=== PATIENT | male | born 1970 | race Caucasian/White ===

== ENCOUNTER 2022-01-22 06:43 | Outpatient (CLI) | payer OTHER, SELFPAY ==
--- NOTE | 2022-01-26 22:10 | WPDHOMESLEEP ---
Sleep Study - Home Unattended Date of Study: 01/22/22 Ordering Provider: Joe Peralta DO Interpreting Provider: Aparna Jackson MD Home Sleep Study Type: Apnea Link Air Height: 1.85 m Weight: 112.037 kg Body Mass Index: 32.5 Neck Circumference (inches): 17 [place]: 10 Reason for Sleep Study Excessive daytime drowsiness, non restorative sleep Sleep History Tang Santos is a 51 year old man with several years history of excessive daytime sleepiness and feeling unrested when he wakes in the morning. Has difficulty staying asleep and often has early childhood assistant awakenings around 3:00 a.m.. He does not have difficulty falling asleep. He snores loudly at night per his . Sometimes he wakes others up due to his snoring. He often naps during his the day on his days off. There is a family history with loud snoring in his father and brothers. He has tried melatonin but it made him too groggy to function the next morning. He occasionally awakens from sleep feeling short of breath. He occasionally awakens at night with heartburn, belching or coughing. He frequently snores and it is quite loud. He rarely has trouble sleeping with a cold. He rarely wakes up gasping for breath at night. He rarely has breathing problems at night observed by others. He rarely sweats excessively at night. He occasionally notices his heart pounding or beating irregularly at night. He frequently falls asleep during the day but never involuntarily or while driving. He does not have loss of muscle tone with strong emotion. He rarely has daytime difficulties due to excessive sleepiness. 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 He rarely feels paralyzed on waking or falling asleep. He rarely has vivid dreamlike scenes upon awakening or falling asleep. He does not feel afraid to go to sleep. He occasionally has nightmares. He occasionally remembers his dreams. He occasionally has racing thoughts. He rarely feels sad or depressed. He frequently has anxiety, frequently has muscular tension. He rarely notices parts of his body jerking. He rarely kicks at night. He rarely has crawling and aching feelings in his legs. He occasionally has leg pain at night. Does not have morning jaw pain or grind his teeth during sleep. He occasionally is bothered by pain during the day. He rarely is awakened by pain at night. He frequently wakes up feeling stiff the morning with sore achy muscles. He occasionally wakes up with pain in the neck and spine. He has palpitations, fatigue, memory problems and concentration difficulties. He takes antacids regularly. Normal bedtime is between 9:30 p.m. and 10:00 p.m. falling asleep within minutes. He typically wakes up 2 and 3 times at night. He tosses and turns, looks at the clock, he thinks about how long he has been asleep and how long until he needs to wake up. His usual wake-up time is 6:00 a.m.. His weekend schedule is similar, bedtime is between 10:00 p.m. and 11:00 p.m. and he wakes at 7:00 a.m.. He usually does not take naps after 3:00 p.m.. He may feel refreshed after a 10 or 15 minute nap. He is usually drowsy in the morning for 2 hours or longer. He feels better in the afternoon compared to other times of day. Habits: Quit tobacco 25 years ago. Caffeine: 2-4 cups in the morning. Alcohol: 2-4 in the evening. No recreational drugs. [facility] Past Medical History Medical History Chronic GERD COVID-19 Essential hypertension Mixed hyperlipidemia Social History Social History Second hand tobacco smoke exposure: No Alcohol intake: current Alcohol use details: social Substance use: never Substance use type: does not use Medications Home Medications Medication Instructions Recorded Confirmed Type famotidine 20 mg tablet 20 mg PO BID tablet 11/25/19 01/21/22 History fluticasone propionate 50 2 sp
[2022-01-26 22:17] VITALS: BMI 32.5
== END 2022-01-23 15:40 | disposition home or self-care (01) ==
LOC: ANHCSM 06:44
PROVIDERS: PCP Internal Medicine; Visit Provider Internal Medicine
DX: G47.10 Hypersomnia, unspecified (principal); G47.39 Other sleep apnea; Z68.32 Body mass index [BMI] 32.0-32.9, adult
CPT/HCPCS: 95806

== ENCOUNTER 2022-02-18 12:32 | Outpatient (CLI) | payer OTHER, SELFPAY ==
--- NOTE | ~2022-02-18 | US_ITS ---
US scrotum doppler INDICATION: Epididymitis TECHNIQUE: Testicular sonogram utilizing grayscale and color Doppler FINDINGS: The testes are normal in size and appearance. No focal lesions are seen. The right testes measures 3.9 x 2.3 x 3.2 cm centimeters, and the left testis measures 4 x 2.1 x 3.1 cm cm. There is n ormal vascular flow to both testes. There are multiple bilateral epididymal cysts. The epididymis appears enlarged bilaterally. Small bilateral hydroceles. IMPRESSION: 1. Bilateral epididymal cysts. 2: Small bilateral hydroceles. 3: Enlarged bilateral epididymis without significant increased vascularity. Reviewed, dictated and finalized at location A.
== END 2022-02-18 12:33 | disposition home or self-care (01) ==
LOC: ANHIMG 12:32
PROVIDERS: PCP Internal Medicine; Visit Provider Internal Medicine
DX: N45.1 Epididymitis (principal); N50.3 Cyst of epididymis; N43.3 Hydrocele, unspecified
CPT/HCPCS: 76870; 93976

== ENCOUNTER 2022-02-19 07:30 | Outpatient (CLI) | payer OTHER, SELFPAY ==
--- NOTE | 2022-03-06 00:59 | WPDSLEEPSTUD ---
Sleep Study Date of Study: 02/19/22 Ordering Provider: Joe Peralta DO Interpreting Physician: Aparna Jackson MD Sleep Study Type: CPAP Titration Height: 1.85 m Weight: 108.862 kg Body Mass Index: 31.6 Neck Circumference (inches): 18 [place]: 9 Reason for Sleep Study * Home sleep test using ApneaLink on December 23, 2021 shows severe mixed sleep apnea with an apnea-hypopnea index of 31.8 with equal amounts of obstructive and central events.??The central apnea index is 10.1, and the obstructive apnea index is 10.5.? The patient snored frequently and desaturated to 79%.?? * Echo 02/27/2022 - normal EF 65-70%. Sleep History Tang Santos is a 51 year old man with several years history of excessive daytime sleepiness with nonrestorative sleep when he wakes in the morning.? He has difficulty staying asleep and often has early head start director awakenings around 3:00 a.m..? He does not have difficulty falling asleep.? He snores loudly at night per his .? Sometimes he wakes others up due to his snoring.? He often naps during his the day on his days off.? There is a family history with loud snoring in his father and brothers.? He has tried melatonin but it made him too groggy to function the next morning. ? He occasionally awakens from sleep feeling short of breath.? He occasionally awakens at night with heartburn, belching or coughing.? He frequently snores and it is quite loud.? He rarely has trouble sleeping with a cold.? He rarely wakes up gasping for breath at night.? He rarely has breathing problems at night observed by others.? He rarely sweats excessively at night.? He occasionally notices his heart pounding or beating irregularly at night.? He frequently falls asleep during the day but never involuntarily or while driving.? He does not have loss of muscle tone with strong emotion.? He rarely has daytime difficulties due to excessive sleepiness. ? 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 He rarely feels paralyzed on waking or falling asleep.? He rarely has vivid dreamlike scenes upon awakening or falling asleep.? He does not feel afraid to go to sleep.? He occasionally has nightmares.? He occasionally remembers his dreams.? He occasionally has racing thoughts.? He rarely feels sad or depressed.? He frequently has anxiety, frequently has muscular tension.? He rarely notices parts of his body jerking.? He rarely kicks at night.? He rarely has crawling and aching feelings in his legs.? He occasionally has leg pain at night.? Does not have morning jaw pain or grind his teeth during sleep.? He occasionally is bothered by pain during the day.? He rarely is awakened by pain at night.? He frequently wakes up feeling stiff the morning with sore achy muscles.? He occasionally wakes up with pain in the neck and spine.? He has palpitations, fatigue, memory problems and concentration difficulties.? He takes antacids regularly. Normal bedtime is between 9:30 p.m. and 10:00 p.m. falling asleep within minutes.? He typically wakes up 2 and 3 times at night.? He tosses and turns, looks at the clock, he thinks about how long he has been asleep and how long until he needs to wake up.? His usual wake-up time is 6:00 a.m..? His weekend schedule is similar, bedtime is between 10:00 p.m. and 11:00 p.m. and he wakes at 7:00 a.m..? He usually does not take naps after 3:00 p.m..? He may feel refreshed after a 10 or 15 minute nap.? He is usually drowsy in the morning for 2 hours or longer.? He feels better in the afternoon compared to other times of day. Habits:? Quit tobacco 25 years ago.? Caffeine: 2-4 cups in the morning.? Alcohol: 2-4 in the evening.? No recreational drugs. [facility] Past Medical History Medical History Chronic GERD COVID-19 Essential hypertension Mixed hyperlipidemia Social History Social History Second hand tobacco smoke exposure: No Alcohol intake: current Alcohol use
[2022-03-06 01:17] VITALS: BMI 31.6
== END 2022-02-20 06:38 | disposition home or self-care (01) ==
LOC: ANHCSM 07:31
PROVIDERS: PCP Internal Medicine; Visit Provider Internal Medicine
DX: G47.39 Other sleep apnea (principal)
CPT/HCPCS: 95811

== ENCOUNTER 2022-02-27 13:20 | Outpatient (CLI) | payer OTHER, SELFPAY ==
--- NOTE | 2022-02-27 13:52 | ECHO_ITS ---
Patient Info Name: Tang Santos Age: 51 years : 1970 Gender: Male Ht: 74 in Wt: 240 lbs BSA: 2.41 m2 HR: 64 bpm BP: 145 / 90 mmHg Technical Quality: Good Exam Date: 02/27/2022 2:06 PM Exam Location: [facility] Patient Status: Outpatient Admit Date: 02/27/2022 Staff Ordering Physician: Joe Peralta DO Hand Inspector: Nayana Leary RDCS Attending Provider: Joe Peralta DO Referring Physician: Fabian MCCABE; Exam Type: CA echo doppler color flow Study Info Indications - opioid use Complete two-dimensional, color flow and Doppler transthoracic echocardiogram is performed. Summary 1. Complete two-dimensional, color flow and Doppler transthoracic echocardiogram is performed. 2. Left ventricular chamber dimension is normal. 3. Left ventricular systolic function is normal, estimated at 65-70%. 4. The left ventricular diastolic function is grade I diastolic dysfunction. 5. E/e' 8 is minimally elevated. 6. There is trace mitral valve regurgitation. 7. There is trace tricuspid valve regurgitation. 8. No pulmonary hypertension, estimated pulmonary arterial systolic pressure is 30 mmHg. Left Ventricle E/e' 8 is minimally elevated. Left ventricular chamber dimension is normal. Left ventricular systolic function is normal, estimated at 65-70%. The left ventricular diastolic function is grade I diastolic dysfunction. Right Ventricle Right ventricular chamber dimension is normal. Right ventricular systolic function is normal. Left Atria Left atrial chamber dimension is normal. Right Atria Right atrial chamber dimension is normal. Aortic Valve The aortic valve is trileaflet. There is no aortic valve stenosis. There is no aortic valve regurgitation. Pulmonic Valve There is no pulmonic regurgitation. Mitral Valve There is no mitral valve stenosis. There is trace mitral valve regurgitation. Tricuspid Valve There is trace tricuspid valve regurgitation. No pulmonary hypertension, estimated pulmonary arterial systolic pressure is 30 mmHg. Pericardium/Pleural There is no pericardial effusion. Inferior Vena Cava Normal inferior vena cava with >50% collapse upon inspiration consistent with normal right atrial pressure, 5 mmHg. Aorta The aortic root size at the sinus of Valsalva is normal. Left Ventricular Outflow Tract Name Value Normal LVOT 2D LVOT Diameter 2.1 cm LVOT Doppler LVOT Peak Gradient 7 mmHg LVOT Mean Gradient 4 mmHg LVOT VTI 26 cm LVOT VTI/AV VTI Ratio 1.0 LVOT Stroke Volume 86 ml LVOT CO 18.0 l/min LVOT CI 7.5 l/min/m2 Pulmonic Valve Name Value Normal PV Doppler PV Peak Gradient
== END 2022-02-27 13:21 | disposition home or self-care (01) ==
PROVIDERS: PCP Internal Medicine; Visit Provider Internal Medicine
DX: F11.90 Opioid use, unspecified, uncomplicated (principal); G47.37 Central sleep apnea in conditions classified elsewhere
CPT/HCPCS: 93306

== ENCOUNTER 2022-08-19 14:40 | Outpatient (CLI) | payer OTHER, SELFPAY ==
--- NOTE | ~2022-08-19 | XR_ITS ---
XR shoulder RT min 2V DATE: 08/19/2022 15:04 INDICATION: Right shoulder pain. [place] a pop lifting an object. TECHNIQUE: 4 views COMPARISON: None FINDINGS: Mild degenerative change at the right acromioclavicular joint. No fracture or dislocation, periosteal reaction or bone destruction or abnormal soft tissue calcifica tion of the right shoulder. IMPRESSION: Mild degenerative change at the right acromioclavicular joint Reviewed, dictated and finalized at location B. OR ACCOUNT REPRESENTATIVE
== END 2022-08-19 14:41 | disposition home or self-care (01) ==
PROVIDERS: PCP Internal Medicine; Visit Provider Internal Medicine
DX: M25.511 Pain in right shoulder (principal)
CPT/HCPCS: 73030

== ENCOUNTER → 2022-09-09 13:42 | Outpatient (CLI) | payer OTHER, SELFPAY ==
--- NOTE | ~2022-09-09 | MR_ITS ---
EXAMINATION: MR shoulder RT wo con DATE: 09/09/2022 14:17 INDICATION: Right shoulder pain with limited range of motion post lifting injury 3 1/2 months prior w ith palpable pop. TECHNIQUE: Magnetic resonance imaging (MRI) of the right shoulder was performed without intravenous c ontrast. Sequences included axial PD-weighted FS FSE, coronal oblique PD-weighted FS FSE, coronal obl ique T2-weighted FS FSE, sagittal PD-weighted FS FSE, and sagittal T1-weighted SE. COMPARISON: None. FINDINGS: Coracoacromial arch: The acromion undersurface is curved in morphology (type II). The coracoacromial ligament is normal. M ild to moderate acromioclavicular osteoarthritis with small inferiorly directed osteophytes and mild subarticular cystic changes. Rotator cuff: Mild to moderate supraspinatus and subscapularis tendinopathy without tear. The infraspinatus and ter es minor tendons are normal. Normal rotator cuff muscle bulk and signal. Biceps tendon, glenoid labrum and glenohumeral cartilage: Long head of the biceps tendon is normal. There is a superior, anterior to posterior tear of the abigail oid labrum (SLAP tear) which begins anteriorly at the anterosuperior labrum at at the 2:00 position e xtending over a normal anterosuperior sublingual foramen across the superior to the posterior superio r labrum at the 10:00 position. Mild partial-thickness cartilage loss with smooth chondral surface a long the cephalad half of the glenoid. Additional partial thickness cartilage loss with smooth chondr al surface along the inferomedial and cephalad to the superomedial aspect of the humeral head. Fluid: Small glenohumeral joint effusion at the posterior recess with proportional extension of a small amou nt of fluid into the biceps tendon sheath. No loose osteochondral bodies. No abnormal increased flui d in the subacromial/subdeltoid bursa to suggest bursitis. Bones: Bone alignment is normal. No fracture or pathologic marrow replacing process. Mild cystic changes at both the medial and lateral margins of the cephalad aspect of the intertubercular groove. Prominent t hickening of the joint capsule at the axillary recess which can be a finding of adhesive capsulitis. IMPRESSION: 1. SLAP tear of the anterosuperior and posterosuperior glenoid labrum. 2. Mild to moderate supraspinatus and subscapularis tendinopathy without tear. 3. Prominent thickening of the joint capsule at the axillary recess which can be seen with adhesive c apsulitis which is a clinical diagnosis. 4. Mild glenohumeral and mild to moderate acromioclavicular osteoarthritis. Reviewed, dictated and finalized at location L. R SYSTEM ELECTRICAL ENGINEER IMPRESSION: 1. SLAP tear of the anterosuperior and posterosuperior glenoid labrum. 2. Mild to moderate supraspinatus and subscapularis tendinopathy without tear. 3. Prominent thickening of the joint capsule at the axillary recess which can b e seen with adhesive capsulitis which is a clinical diagnosis. 4. Mild glenohumeral and mild to moderate acromioclavicular osteoarthritis.
== END ==
PROVIDERS: PCP Internal Medicine; Visit Provider Internal Medicine
DX: M19.011 Primary osteoarthritis, right shoulder (principal); S43.431A Superior glenoid labrum lesion of right shoulder, initial encounter; X58.XXXA Exposure to other specified factors, initial encounter
CPT/HCPCS: 73221